=== PATIENT | male | born 1985 | race Caucasian/White ===

== ENCOUNTER 2020-02-23 16:23 | Emergency (ER) | payer OTHER ==
[~2020-02-23] VITALS: Ht 185.4 cm; Wt 140.6 kg
--- OUTSIDE RECORDS SUMMARY | 2020-02-23 16:24 | XMS ---
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 Maddie VISIT COUNT (12 MO.) 1 [facility] TOTAL 1 NOTE: Visits indicate total known visits. ED/UCC VISIT TRACKING (12 MO.) 02/23/2020 16:23 [facility] [place] TYPE: Emergency COMPLAINT: - RIGHT LEG PAIN, WOUND CHECK INPATIENT VISIT TRACKING (12 MO.) No inpatient visits to display in this time frame [email or web address]
[2020-02-23] MEDS ORDERED: ANASTROZOLE1 MG PO (18:14)
[2020-02-23] MEDS ORDERED: TESTOSTERO100 MG/1 M IM (18:16)
[2020-02-23] MEDS ORDERED: CITALOPRAM HBR20 MG PO (18:16)
== END 2020-02-23 19:40 | disposition home or self-care (01) ==
LOC: ED 16:23
DX: S80.11XA Contusion of right lower leg, initial encounter (principal); W22.8XXA Striking against or struck by other objects, initial encounter; Z88.0 Allergy status to penicillin; Z79.899 Other long term (current) drug therapy
CPT/HCPCS: 99283